=== PATIENT | male | born 1965 | race Caucasian/White ===

== ENCOUNTER 2019-08-22 08:43 | Emergency (ER) | payer MEDICAID, OTHER ==
[~2019-08-22] VITALS: Ht 170.2 cm; Wt 86.4 kg
[~2019-08-22 08:43] MED LIST: NAPR-996 PO
[2019-08-22 08:53] VITALS: BP 140/91
[2019-08-22] MEDS ORDERED: CEPH-572 PO (10:11)
[2019-08-22] MEDS ORDERED: SULF1TAB49 PO (10:11)
== END 2019-08-22 10:37 | disposition home or self-care (01) ==
LOC: ER 08:43
DX: L02.415 Cutaneous abscess of right lower limb (principal); Z59.0 Homelessness; Z79.899 Other long term (current) drug therapy
CPT/HCPCS: 10060; 99283